=== PATIENT | male | born 1950 | race African-American/Black ===

== ENCOUNTER 2022-08-12 10:57 | Inpatient (IN) | payer MEDICAID, MEDICARE ==
[~2022-08-12] VITALS: Ht 188 cm; Wt 71.2 kg
[2022-08-12 11:01] VITALS: O2SAT 96
[2022-08-12 11:38] LABS: HEMATOCRIT. 35.2 % (42.0-52.0); HEMOGLOBIN. 12.3 g/dL (14.0-18.0); MEAN CORPUSCULAR HEMOGLOBIN 34.7 pg (28.0-32.0); MEAN CORPUSCULAR VOLUME 99.1 fL (80.0-94.0); MEAN PLATELET VOLUME 7.4 fl (7.4-10.4); PLATELET 250 x1000/uL (130-400); RED BLOOD CELL COUNT 3.55 mill/uL (4.7-6.1); RED CELL DISTRIBUTION WIDTH 15.7 % (11.6-14.6)
[2022-08-12 11:46] LABS: CHLORIDE 103 mEq/L (98-107)
[2022-08-12 11:55] LABS: ETHANOL BLOOD < 10 mg/dL (-10)
[2022-08-12 12:13] LABS: PLATELET ESTIMATE NORMAL
[2022-08-12 12:40] LABS: CLARITY URINE TURBID (CLEAR); COLOR URINE DARK YELLOW (YELLOW); KETONES URINE NEGATIVE (NEGATIVE); LEUKOCYTE ESTERASE URINE 3+ (NEGATIVE); NITRITE URINE NEGATIVE (NEGATIVE); OCCULT BLOOD URINE 2+ (NEGATIVE); PROTEIN URINE 2+ (NEGATIVE); SPECIFIC GRAVITY URINE 1.015 (1.005-1.030)
[2022-08-12 13:03] LABS: *AMPHETAMINES SCREEN URINE NEGATIVE (NEGATIVE); *BARBITURATES SCREEN URINE NEGATIVE (NEGATIVE); *BENZODIAZEPINES SCREEN URINE NEGATIVE (NEGATIVE); *COCAINE SCREEN URINE NEGATIVE (NEGATIVE); CANNABINOID URINE SCREEN PRESUMTIVE POSITIVE (NEGATIVE); METHADONE URINE SCREEN NEGATIVE (NEGATIVE); OPIATES URINE SCREEN NEGATIVE (NEGATIVE); PHENCYCLIDINE URINE SCREEN NEGATIVE (NEGATIVE)
[2022-08-12] MEDS ORDERED: CEFTRIAXONE 1GM PREMIX 50 ML IV ONE (13:30)
[2022-08-12] MEDS ORDERED: METRONIDAZOLE 500 MG PREMIX 100 ML IV ONE (15:00)
[2022-08-12] MEDS ORDERED: ACETAMINOPHEN 325MG TABLET PO PRN ×2 (17:15)
[2022-08-12] MEDS ORDERED: HALOPERIDOL 5MG TABLET PO PRN (17:15)
[2022-08-12] MEDS ORDERED: GUAIFENESIN 200MG/10ML SUGAR FREE UDC PO PRN (17:15)
[2022-08-12] MEDS ORDERED: ONDANSETRON HCL 4MG/2ML INJ IV PRN (17:15)
[2022-08-12] MEDS ORDERED: IPRATROPIUM/ALBUTEROL 0.5-3(2.5)MG/3ML NEB HHN PRN (17:15)
[2022-08-12] MEDS ORDERED: DEXTROSE 50% WATER 50ML SYRINGE IV PRN (17:30)
[2022-08-12] MEDS: DEXT 5%/0.9% NACL 1,000 ML IV SCH ×2 (18:00→21:23)
[2022-08-12] MEDS ORDERED: INSULIN LISPRO 100 UNITS/ML SUBCUT SCH (18:00)
[2022-08-12] MEDS: ENOXAPARIN 30MG/0.3ML SYR SUBCUT SCH (18:00)
[2022-08-12] MEDS ORDERED: BLOOD SUGAR DIAGNOSTIC STRIP TEST SCH (18:00)
[2022-08-12 20:51] VITALS: BP 131/86; PULSE 72; RESP 18; TEMP 97.2
[2022-08-12] MEDS ORDERED: ZOLPIDEM TARTRATE 5MG TABLET PO PRN (21:00)
[2022-08-12 21:13] VITALS: BP 131/86; PULSE 72; RESP 18; TEMP 97.2
[2022-08-12] MEDS ORDERED: HYDROCODONE/ACETAMINOPHEN 5/325MG TABLET PO PRN (21:45)
[2022-08-12] MEDS ORDERED: NALOXONE HCL 0.4MG/ML VIAL IV PRN (22:00)
[2022-08-13 04:00] VITALS: BP 129/78; PULSE 64; RESP 16; TEMP 97.4
[2022-08-13 08:07] VITALS: BP 144/79; PULSE 69; RESP 20; TEMP 97.6
[2022-08-13 12:03] LABS: HEMATOCRIT. 38.4 % (42.0-52.0); MEAN CORPUSCULAR HEMOGLOBIN 33.9 pg (28.0-32.0); MEAN CORPUSCULAR VOLUME 100.6 fL (80.0-94.0); MEAN PLATELET VOLUME 7.8 fl (7.4-10.4); PLATELET 218 x1000/uL (130-400); RED BLOOD CELL COUNT 3.82 mill/uL (4.7-6.1)
[2022-08-13 12:14] LABS: CHLORIDE 110 mEq/L (98-107)
[2022-08-13] MEDS ORDERED: KCL 20MEQ/100ML PREMIX 100 ML IV NR (14:00)
[2022-08-13] MEDS ORDERED: CEFTRIAXONE 1,000 MG in DEXTROSE 5% WATER 50 ML IV SCH (14:00)
[2022-08-13 14:26] LABS: PLATELET ESTIMATE NORMAL
[2022-08-13 15:37] VITALS: BP 106/70; PULSE 96; RESP 18; TEMP 97.5
[2022-08-13] MEDS: CEFTRIAXONE 1,000 MG in DEXTROSE 5% WATER 50 ML IV SCH (16:37)
[2022-08-13] MEDS: ENOXAPARIN 30MG/0.3ML SYR SUBCUT SCH (17:15)
[2022-08-13 20:26] VITALS: BP 117/82; PULSE 99; RESP 20; TEMP 97.6
[2022-08-13] MEDS: DEXT 5%/0.9% NACL 1,000 ML IV SCH (23:54)
[2022-08-14 00:12] VITALS: BP 145/85; PULSE 72; RESP 19; TEMP 97.6
[2022-08-14 04:00] VITALS: BP 131/85; PULSE 89; RESP 20; TEMP 97.6
[2022-08-14 06:28] LABS: HEMATOCRIT. 37.1 % (42.0-52.0); HEMOGLOBIN. 12.3 g/dL (14.0-18.0); MEAN CORPUSCULAR HEMOGLOBIN 33.8 pg (28.0-32.0); MEAN CORPUSCULAR VOLUME 102.2 fL (80.0-94.0); PLATELET 203 x1000/uL (130-400); RED BLOOD CELL COUNT 3.63 mill/uL (4.7-6.1)
[2022-08-14 06:36] LABS: CHLORIDE 115 mEq/L (98-107)
[2022-08-14 08:00] VITALS: BP 129/83; PULSE 75; RESP 20; TEMP 97.8
[2022-08-14] MEDS: TAMSULOSIN HCL 0.4MG SR CAPSULE PO SCH (10:30)
[2022-08-14] MEDS: FINASTERIDE 5MG TABLET PO SCH (10:30)
[2022-08-14 12:00] VITALS: BP 132/78; PULSE 73; RESP 20; TEMP 97
[2022-08-14 13:27] LABS: PLATELET ESTIMATE NORMAL
[2022-08-14 16:00] VITALS: BP 122/69; PULSE 75; RESP 18; TEMP 97.1
[2022-08-14] MEDS: CEFTRIAXONE 1,000 MG in DEXTROSE 5% WATER 50 ML IV SCH (19:43)
[2022-08-14 20:00] VITALS: BP 134/88; PULSE 79; RESP 20; TEMP 98.1
[2022-08-14] MEDS: DEXT 5%/0.9% NACL 1,000 ML IV SCH ×2 (21:32→21:34)
[2022-08-15 00:09] VITALS: BP 135/80; PULSE 75; RESP 18; TEMP 97.7
[2022-08-15 04:00] VITALS: BP 135/93; PULSE 91; RESP 20; TEMP 98.1
[2022-08-15 06:29] LABS: HEMATOCRIT. 37.3 % (42.0-52.0); HEMOGLOBIN. 12.4 g/dL (14.0-18.0); MEAN CORPUSCULAR HEMOGLOBIN 33.5 pg (28.0-32.0); MEAN CORPUSCULAR VOLUME 100.7 fL (80.0-94.0); MEAN PLATELET VOLUME 8.2 fl (7.4-10.4); PLATELET 207 x1000/uL (130-400); RED CELL DISTRIBUTION WIDTH 16.5 % (11.6-14.6)
[2022-08-15 07:04] LABS: CHLORIDE 118 mEq/L (98-107)
[2022-08-15 08:00] VITALS: BP 142/92; PULSE 91; RESP 18; TEMP 97.8
[2022-08-15] MEDS: FINASTERIDE 5MG TABLET PO SCH (09:00)
[2022-08-15] MEDS: TAMSULOSIN HCL 0.4MG SR CAPSULE PO SCH (09:00)
[2022-08-15 09:04] LABS: PROSTRATE SPECIFIC AG TOTAL 0.95 ng/mL (0.0-4.0)
[2022-08-15 09:31] LABS: BG BASE EXCESS -3.1 mmol/L (-2.0-2.0); BG CARBOXYHEMOGLOBIN 0.1 % (0.5-1.5); BG DEOXYHEMOGLOBIN 2.5 % (0.0-5.0); BG FRACTION INSPIRED OXYGEN 21; BG HCO3 ACT 19.2 mmol/L (22.0-26.0); BG METHEMOGLOBIN 0.4 % (0.0-1.5); BG OXYGEN SATURATION 97.5 % (92.0-98.5); BG PCO2 27.3 mmHg (35.0-45.0); BG PH 7.466 (7.350-7.450); BG PO2 98.9 mmHg (75.0-100.0); BG SAMPLE SITE RIGHT RADIAL; BG TOTAL HEMOGLOBIN 12.9 g/dL (12.0-18.0); BG VENT MODE ROOM AIR
[2022-08-15 11:10] LABS: PHOSPHORUS 2.4 mg/dL (2.5-4.9)
[2022-08-15 12:00] VITALS: BP 137/89; PULSE 89; RESP 18; TEMP 97.2
[2022-08-15] MEDS ORDERED: LEVOFLOXACIN 750MG PREMIX 150 ML IV SCH (12:30)
[2022-08-15] MEDS: DEXTROSE 5% WATER 1,000 ML IV SCH (13:00)
[2022-08-15] MEDS ORDERED: MINERAL OIL ENEMA 133ML PR NR (13:15)
[2022-08-15 13:22] LABS: T4 FREE 0.94 ng/dL (0.76-1.46)
[2022-08-15] MEDS: KCL 20MEQ/100ML PREMIX 100 ML IV SCH ×2 (13:50→14:10)
[2022-08-15] MEDS: SODIUM CHLORIDE 0.45% 1,000 ML IV SCH ×2 (13:54→21:56)
[2022-08-15] MEDS ORDERED: FOLIC ACID 1 MG in SODIUM CHLORIDE 0.9% 500 ML IV SCH (14:00)
[2022-08-15 16:00] VITALS: BP 136/95; PULSE 107; RESP 18; TEMP 98.2
[2022-08-15] MEDS: CEFTRIAXONE 1,000 MG in DEXTROSE 5% WATER 50 ML IV SCH ×2 (17:36→17:38)
[2022-08-15] MEDS: PANTOPRAZOLE SODIUM 40 MG/VIAL IV SCH (17:56)
[2022-08-15 20:00] VITALS: BP 133/92; PULSE 102; RESP 20; TEMP 97.5
[2022-08-16] VITALS: BP 135/96; PULSE 104; RESP 20; TEMP 98
[2022-08-16 01:48] LABS: PLATELET ESTIMATE NORMAL
[2022-08-16 04:00] VITALS: BP 142/95; PULSE 107; RESP 20; TEMP 97.9
[2022-08-16] MEDS: DEXTROSE 5% WATER 1,000 ML IV SCH (04:24)
[2022-08-16 07:24] LABS: BASOPHILS % 0.4 % (0.0-2.0); EOSINOPHILS % 1.4 % (0.0-5.0); MEAN CORPUSCULAR HEMOGLOBIN 33.9 pg (28.0-32.0); MEAN CORPUSCULAR VOLUME 98.6 fL (80.0-94.0); MEAN PLATELET VOLUME 8.5 fl (7.4-10.4); MONOCYTES % 7.9 % (2.0-8.0); NEUTROPHILS % 82.3 % (40.0-76.0); PLATELET 164 x1000/uL (130-400); RED BLOOD CELL COUNT 3.55 mill/uL (4.7-6.1); RED CELL DISTRIBUTION WIDTH 15.8 % (11.6-14.6)
[2022-08-16 07:30] LABS: CHLORIDE 120 mEq/L (98-107)
[2022-08-16 07:39] LABS: HDL CHOLESTEROL 62 mg/dL (40-59); LDL CHOLESTEROL 82 mg/dL (5-100); PHOSPHORUS 2.9 mg/dL (2.5-4.9)
[2022-08-16 08:00] VITALS: BP 142/79; PULSE 100; RESP 18; TEMP 97.3
[2022-08-16] MEDS: TAMSULOSIN HCL 0.4MG SR CAPSULE PO SCH (09:00)
[2022-08-16] MEDS: FINASTERIDE 5MG TABLET PO SCH (09:00)
[2022-08-16] MEDS: SODIUM CHLORIDE 0.45% 1,000 ML IV SCH ×2 (10:54→18:23)
[2022-08-16] MEDS: PANTOPRAZOLE SODIUM 40 MG/VIAL IV SCH (10:54)
[2022-08-16 12:00] VITALS: BP 132/69; PULSE 116; RESP 18; TEMP 97.3
[2022-08-16] MEDS ORDERED: METOCLOPRAMIDE HCL 10MG/2ML VIAL IV SCH (12:00)
[2022-08-16 16:00] VITALS: BP 123/87; PULSE 63; RESP 23; TEMP 97.2
[2022-08-16] MEDS ORDERED: POTASSIUM CHLORIDE 20MEQ/PACKET PO NR (17:15)
[2022-08-16] MEDS: METOCLOPRAMIDE HCL 10MG/2ML VIAL IV SCH (18:22)
[2022-08-16] MEDS: CEFTRIAXONE 1,000 MG in DEXTROSE 5% WATER 50 ML IV SCH (18:22)
[2022-08-16] MEDS ORDERED: SORBITOL 70% SOLN 30ML PO NR (18:30)
[2022-08-16 20:00] VITALS: BP 105/77; PULSE 113; RESP 18; TEMP 97.7
[2022-08-17] VITALS (86 sets, daily range): BP systolic 71–230; BP diastolic 33–97; PULSE 61–117; RESP 14–28; TEMP 95–98.2
[2022-08-17] MEDS: METOCLOPRAMIDE HCL 10MG/2ML VIAL IV SCH (00:42)
[2022-08-17] MEDS: SODIUM CHLORIDE 0.45% 1,000 ML IV SCH (05:33)
[2022-08-17 06:44] LABS: HEMATOCRIT. 41.2 % (42.0-52.0); HEMOGLOBIN. 12.7 g/dL (14.0-18.0); MEAN CORPUSCULAR HEMOGLOBIN 33.1 pg (28.0-32.0); MEAN CORPUSCULAR VOLUME 107.4 fL (80.0-94.0); MEAN PLATELET VOLUME 8.4 fl (7.4-10.4); PLATELET 110 x1000/uL (130-400); RED BLOOD CELL COUNT 3.84 mill/uL (4.7-6.1); RED CELL DISTRIBUTION WIDTH 17.8 % (11.6-14.6)
[2022-08-17] MEDS ORDERED: PROPOFOL 10MG/ML 100ML 100 ML IV PRN (07:45)
[2022-08-17 08:17] LABS: CHLORIDE 120 mEq/L (98-107)
[2022-08-17] MEDS: FINASTERIDE 5MG TABLET PO SCH ×2 (09:00→11:02)
[2022-08-17] MEDS ORDERED: FOLIC ACID 1 MG in SODIUM CHLORIDE 0.9% 500 ML IV SCH ×2 (09:00→14:00)
[2022-08-17 09:17] LABS: BG BASE EXCESS -9.7 mmol/L (-2.0-2.0); BG CARBOXYHEMOGLOBIN 0.3 % (0.5-1.5); BG DEOXYHEMOGLOBIN 0.4 % (0.0-5.0); BG FRACTION INSPIRED OXYGEN 100; BG METHEMOGLOBIN 0.5 % (0.0-1.5); BG OXYGEN SATURATION 99.6 % (92.0-98.5); BG OXYHEMOGLOBIN 98.8 % (94.0-97.0); BG PCO2 46.1 mmHg (35.0-45.0); BG PH 7.209 (7.350-7.450); BG PO2 450.8 mmHg (75.0-100.0); BG SAMPLE SITE LEFT BRACHIAL; BG TOTAL HEMOGLOBIN 13.1 g/dL (12.0-18.0); BG VENT MODE VENT - AC
[2022-08-17] MEDS ORDERED: SODIUM BICARBONATE 8.4% 1 MEQ/ML 50ML SYR IV NR ×2 (09:30→16:45)
[2022-08-17] MEDS ORDERED: SODIUM POLYSTYRENE SULFONATE 15 G/60 ML BOT PO NR (09:30)
[2022-08-17] MEDS ORDERED: FUROSEMIDE 20MG/2ML VIAL IVP NR (09:30)
[2022-08-17] MEDS ORDERED: DEXT 5%/0.45% NACL 1000ML 1,000 ML IV SCH (09:30)
[2022-08-17] MEDS: SODIUM BICARBONATE 100 MEQ in DEXTROSE 5% WATER 1,000 ML IV SCH (10:29)
[2022-08-17 11:13] LABS: CREATINE KINASE 79 IU/L (39-308)
[2022-08-17] MEDS: NOREPINEPHRINE 32 MG in DEXT 5% WATER 218 ML IV PRN (11:22)
[2022-08-17] MEDS ORDERED: LIDOCAINE HCL 1% 10 MG/ML 10ML VIAL ONE (12:04)
[2022-08-17] MEDS ORDERED: ENOXAPARIN 30MG/0.3ML SYR SUBCUT SCH (14:00)
[2022-08-17] MEDS ORDERED: ENOXAPARIN 60MG/0.6ML SYR SUBCUT NR (14:15)
[2022-08-17 14:18] LABS: PLATELET ESTIMATE DECREASED
[2022-08-17] MEDS: FAMOTIDINE 20MG/2ML VIAL IV SCH (14:55)
[2022-08-17] MEDS: TAMSULOSIN HCL 0.4MG SR CAPSULE PO SCH (14:56)
[2022-08-17 16:24] LABS: BG BASE EXCESS -8.1 mmol/L (-2.0-2.0); BG CARBOXYHEMOGLOBIN 0.1 % (0.5-1.5); BG DEOXYHEMOGLOBIN 12.3 % (0.0-5.0); BG FRACTION INSPIRED OXYGEN 60; BG HCO3 ACT 19.9 mmol/L (22.0-26.0); BG METHEMOGLOBIN 0.4 % (0.0-1.5); BG OXYGEN SATURATION 87.6 % (92.0-98.5); BG OXYHEMOGLOBIN 87.2 % (94.0-97.0); BG PCO2 51.2 mmHg (35.0-45.0); BG PH 7.208 (7.350-7.450); BG PO2 60.5 mmHg (75.0-100.0); BG SAMPLE SITE RIGHT RADIAL; BG TOTAL HEMOGLOBIN 12.8 g/dL (12.0-18.0); BG VENT MODE VENT - AC
[2022-08-17] MEDS ORDERED: METOCLOPRAMIDE HCL 10MG/2ML VIAL IV SCH (18:00)
[2022-08-17] MEDS: CEFTRIAXONE 1,000 MG in DEXTROSE 5% WATER 50 ML IV SCH (19:49)
[2022-08-17] MEDS ORDERED: SORBITOL 70% SOLN 30ML PO NR (20:00)
[2022-08-17 20:38] LABS: BG BASE EXCESS -2.1 mmol/L (-2.0-2.0); BG CARBOXYHEMOGLOBIN 0.3 % (0.5-1.5); BG DEOXYHEMOGLOBIN 9.8 % (0.0-5.0); BG FRACTION INSPIRED OXYGEN 100; BG HCO3 ACT 25.7 mmol/L (22.0-26.0); BG METHEMOGLOBIN 0.4 % (0.0-1.5); BG OXYGEN SATURATION 90.1 % (92.0-98.5); BG OXYHEMOGLOBIN 89.5 % (94.0-97.0); BG PCO2 56.6 mmHg (35.0-45.0); BG PH 7.275 (7.350-7.450); BG PO2 60.4 mmHg (75.0-100.0); BG SAMPLE SITE LEFT RADIAL; BG TOTAL HEMOGLOBIN 13.9 g/dL (12.0-18.0); BG VENT MODE VENT - AC
[2022-08-18] VITALS (104 sets, daily range): BP systolic 82–129; BP diastolic 37–78; PULSE 87–116; RESP 24–28; TEMP 97.4–99.3
[2022-08-18] MEDS: SODIUM BICARBONATE 100 MEQ in DEXTROSE 5% WATER 1,000 ML IV SCH (00:07)
[2022-08-18] MEDS: NOREPINEPHRINE 32 MG in DEXT 5% WATER 218 ML IV PRN (05:38)
[2022-08-18 05:50] LABS: INR 1.1; PROTHROMBIN TIME 12.2 sec (9.6-11.0)
[2022-08-18] MEDS: DEXTROSE 5% WATER 1,000 ML IV SCH ×3 (06:35→20:47)
[2022-08-18] MEDS ORDERED: IPRATROPIUM/ALBUTEROL 0.5-3(2.5)MG/3ML NEB HHN PRN (08:00)
[2022-08-18] MEDS: TAMSULOSIN HCL 0.4MG SR CAPSULE PO SCH (08:27)
[2022-08-18] MEDS: FAMOTIDINE 20MG/2ML VIAL IV SCH (08:27)
[2022-08-18] MEDS: FINASTERIDE 5MG TABLET PO SCH (08:30)
[2022-08-18] MEDS: DEXT 5% IV SCH (08:39)
[2022-08-18] MEDS: WATER IV SCH (08:39)
[2022-08-18] MEDS: FOLIC ACID IV SCH (08:39)
[2022-08-18] MEDS: IPRATROPIUM/ALBUTEROL 0.5-3(2.5)MG/3ML NEB HHN SCH ×2 (08:48→19:56)
[2022-08-18 08:52] LABS: BG BASE EXCESS -6.7 mmol/L (-2.0-2.0); BG CARBOXYHEMOGLOBIN 0.3 % (0.5-1.5); BG DEOXYHEMOGLOBIN 5.4 % (0.0-5.0); BG FRACTION INSPIRED OXYGEN 60; BG HCO3 ACT 19.4 mmol/L (22.0-26.0); BG METHEMOGLOBIN 0.5 % (0.0-1.5); BG OXYGEN SATURATION 94.6 % (92.0-98.5); BG OXYHEMOGLOBIN 93.8 % (94.0-97.0); BG PH 7.293 (7.350-7.450); BG SAMPLE SITE RIGHT RADIAL; BG TOTAL HEMOGLOBIN 11.1 g/dL (12.0-18.0); BG VENT MODE VENT - AC
[2022-08-18 08:54] LABS: HEMATOCRIT. 33.3 % (42.0-52.0); HEMOGLOBIN. 10.6 g/dL (14.0-18.0); MEAN CORPUSCULAR HEMOGLOBIN 32.8 pg (28.0-32.0); MEAN CORPUSCULAR VOLUME 102.8 fL (80.0-94.0); MEAN PLATELET VOLUME 8.3 fl (7.4-10.4); RED BLOOD CELL COUNT 3.24 mill/uL (4.7-6.1); RED CELL DISTRIBUTION WIDTH 16.8 % (11.6-14.6)
[2022-08-18 09:15] LABS: PLATELET 40 x1000/uL (130-400)
[2022-08-18 13:03] LABS: HEMATOCRIT. 31.6 % (42.0-52.0); HEMOGLOBIN. 10.3 g/dL (14.0-18.0); MEAN CORPUSCULAR HEMOGLOBIN 33.4 pg (28.0-32.0); MEAN CORPUSCULAR VOLUME 102.7 fL (80.0-94.0); MEAN PLATELET VOLUME 8.7 fl (7.4-10.4); RED BLOOD CELL COUNT 3.08 mill/uL (4.7-6.1); RED CELL DISTRIBUTION WIDTH 17.3 % (11.6-14.6)
[2022-08-18 13:09] LABS: PLATELET 34 x1000/uL (130-400)
[2022-08-18] MEDS ORDERED: SODIUM BICARBONATE 8.4% 1 MEQ/ML 50ML SYR IV NR (14:00)
[2022-08-18] MEDS ORDERED: ENOXAPARIN 60MG/0.6ML SYR SUBCUT SCH (15:00)
[2022-08-19] VITALS (109 sets, daily range): BP systolic 79–159; BP diastolic 38–120; PULSE 86–104; RESP 6–104; TEMP 97.5–98.6
[2022-08-19] MEDS: NOREPINEPHRINE 32 MG in DEXT 5% WATER 218 ML IV PRN (00:33)
[2022-08-19] MEDS: DEXTROSE 5% WATER 1,000 ML IV SCH (04:32)
[2022-08-19 05:48] LABS: HEMATOCRIT. 26.2 % (42.0-52.0); HEMOGLOBIN. 8.8 g/dL (14.0-18.0); MEAN CORPUSCULAR HEMOGLOBIN 33.9 pg (28.0-32.0); MEAN CORPUSCULAR VOLUME 101.4 fL (80.0-94.0); RED BLOOD CELL COUNT 2.59 mill/uL (4.7-6.1); RED CELL DISTRIBUTION WIDTH 16.8 % (11.6-14.6)
[2022-08-19 06:10] LABS: INR 1.1; PROTHROMBIN TIME 11.9 sec (9.6-11.0)
[2022-08-19 06:42] LABS: PLATELET 25 x1000/uL (130-400)
[2022-08-19 07:29] LABS: PLATELET ESTIMATE DECREASED
[2022-08-19 07:46] LABS: NUCLEATED RED BLOOD CELLS 1 /100 WBC; PLATELET ESTIMATE DECREASED
[2022-08-19 08:07] LABS: PLATELET ESTIMATE MARKEDLY DECREASED
[2022-08-19 09:06] LABS: BG CARBOXYHEMOGLOBIN 0.2 % (0.5-1.5); BG DEOXYHEMOGLOBIN 0.8 % (0.0-5.0); BG FRACTION INSPIRED OXYGEN 70; BG HCO3 ACT 21.5 mmol/L (22.0-26.0); BG OXYGEN SATURATION 99.2 % (92.0-98.5); BG PCO2 51.3 mmHg (35.0-45.0); BG PO2 223.2 mmHg (75.0-100.0); BG SAMPLE SITE LEFT RADIAL; BG TOTAL HEMOGLOBIN 11.3 g/dL (12.0-18.0); BG TOTAL RESPIRATORY RATE 26 b/min; BG VENT MODE VENT - AC
[2022-08-19] MEDS ORDERED: DEXTROSE 50% WATER 50ML SYRINGE IV PRN (10:45)
[2022-08-19] MEDS: DEXT 5% IV SCH (11:12)
[2022-08-19] MEDS: PANTOPRAZOLE SODIUM 40 MG/VIAL IV SCH (11:12)
[2022-08-19] MEDS: TAMSULOSIN HCL 0.4MG SR CAPSULE PO SCH (11:12)
[2022-08-19] MEDS: WATER IV SCH (11:12)
[2022-08-19] MEDS: FOLIC ACID IV SCH (11:12)
[2022-08-19] MEDS: FINASTERIDE 5MG TABLET PO SCH (11:12)
[2022-08-19] MEDS: BLOOD SUGAR DIAGNOSTIC STRIP TEST SCH ×3 (11:12→21:45)
[2022-08-19] MEDS: INSULIN LISPRO 100 UNITS/ML SUBCUT SCH ×6 (11:30→21:00)
[2022-08-19] MEDS: IPRATROPIUM/ALBUTEROL 0.5-3(2.5)MG/3ML NEB HHN SCH ×2 (14:16→20:05)
[2022-08-19] MEDS ORDERED: CEFEPIME 1,000 MG in DEXTROSE 5% WATER 50 ML IV SCH (16:00)
[2022-08-19] MEDS ORDERED: VANCOMYCIN 1500MG in DEXTROSE 5% WATER 250ML IV NR (17:00)
[2022-08-19] MEDS: DOXYCYCLINE 100 MG in DEXT 5% WATER 100 ML IV SCH (19:09)
[2022-08-19] MEDS: MEROPENEM 1,000 MG in SODIUM CHLORIDE 0.9% 100 ML IV SCH (19:09)
[2022-08-20] VITALS (110 sets, daily range): BP systolic 75–201; BP diastolic 29–114; PULSE 87–121; RESP 26–31; TEMP 97.1–98.9
[2022-08-20] MEDS: DEXTROSE 5% WATER 1,000 ML IV SCH (01:15)
[2022-08-20] MEDS: IPRATROPIUM/ALBUTEROL 0.5-3(2.5)MG/3ML NEB HHN SCH ×4 (02:05→20:03)
[2022-08-20] MEDS: NOREPINEPHRINE 32 MG in DEXT 5% WATER 218 ML IV PRN (05:54)
[2022-08-20 06:00] LABS: BASOPHILS % 0.1 % (0.0-2.0); EOSINOPHILS % 0.1 % (0.0-5.0); HEMOGLOBIN. 8.1 g/dL (14.0-18.0); LYMPHOCYTES % 10.5 % (20.0-50.0); MEAN CORPUSCULAR HEMOGLOBIN 33.6 pg (28.0-32.0); MEAN PLATELET VOLUME 8.8 fl (7.4-10.4); MONOCYTES % 3.4 % (2.0-8.0); NEUTROPHILS % 85.9 % (40.0-76.0); RED CELL DISTRIBUTION WIDTH 16.9 % (11.6-14.6)
[2022-08-20] MEDS: DOXYCYCLINE 100 MG in DEXT 5% WATER 100 ML IV SCH ×2 (06:09→18:20)
[2022-08-20 06:30] LABS: PLATELET 14 x1000/uL (130-400)
[2022-08-20] MEDS: INSULIN LISPRO 100 UNITS/ML SUBCUT SCH ×7 (06:30→21:30)
[2022-08-20] MEDS: BLOOD SUGAR DIAGNOSTIC STRIP TEST SCH ×4 (06:34→20:57)
[2022-08-20] MEDS ORDERED: LIDOCAINE HCL 1% 10 MG/ML 10ML VIAL ONE (07:19)
[2022-08-20 09:10] LABS: BG BASE EXCESS -4.4 mmol/L (-2.0-2.0); BG CARBOXYHEMOGLOBIN 0.3 % (0.5-1.5); BG DEOXYHEMOGLOBIN 1.3 % (0.0-5.0); BG FRACTION INSPIRED OXYGEN 40; BG HCO3 ACT 21.9 mmol/L (22.0-26.0); BG METHEMOGLOBIN 0.3 % (0.0-1.5); BG OXYGEN SATURATION 98.7 % (92.0-98.5); BG OXYHEMOGLOBIN 98.1 % (94.0-97.0); BG PH 7.296 (7.350-7.450); BG PO2 149.6 mmHg (75.0-100.0); BG SAMPLE SITE RIGHT RADIAL; BG TOTAL HEMOGLOBIN 9.6 g/dL (12.0-18.0); BG VENT MODE VENT - AC
[2022-08-20] MEDS: CITRIC ACID/SODIUM CITRATE SOLN 30ML UDC PO SCH ×3 (10:15→18:19)
[2022-08-20] MEDS: PANTOPRAZOLE SODIUM 40 MG/VIAL IV SCH (10:15)
[2022-08-20] MEDS: TAMSULOSIN HCL 0.4MG SR CAPSULE PO SCH (10:16)
[2022-08-20] MEDS: WATER IV SCH (10:16)
[2022-08-20] MEDS: FINASTERIDE 5MG TABLET PO SCH (10:16)
[2022-08-20] MEDS: FOLIC ACID IV SCH (10:16)
[2022-08-20] MEDS: DEXT 5% IV SCH (10:16)
[2022-08-20] MEDS ORDERED: VASOPRESSIN 20 UNIT in SODIUM CHLORIDE 0.9% 99 ML IV PRN (12:00)
[2022-08-20] MEDS: SODIUM CHLORIDE 0.45% 1,000 ML IV SCH (18:19)
[2022-08-20 20:57] LABS: BASOPHILS % 0.2 % (0.0-2.0); EOSINOPHILS % 0.2 % (0.0-5.0); HEMATOCRIT. 26.3 % (42.0-52.0); HEMOGLOBIN. 8.9 g/dL (14.0-18.0); LYMPHOCYTES % 11.3 % (20.0-50.0); MEAN CORPUSCULAR HEMOGLOBIN 33.5 pg (28.0-32.0); MEAN PLATELET VOLUME 9.1 fl (7.4-10.4); MONOCYTES % 3.9 % (2.0-8.0); NEUTROPHILS % 84.4 % (40.0-76.0); RED BLOOD CELL COUNT 2.65 mill/uL (4.7-6.1); RED CELL DISTRIBUTION WIDTH 16.7 % (11.6-14.6)
[2022-08-20 21:09] LABS: PLATELET 25 x1000/uL (130-400)
[2022-08-20] MEDS: MEROPENEM 1,000 MG in SODIUM CHLORIDE 0.9% 100 ML IV SCH (21:30)
[2022-08-21] VITALS (104 sets, daily range): BP systolic 89–130; BP diastolic 58–81; PULSE 79–105; RESP 20–69; TEMP 96–98.2
[2022-08-21 00:34] LABS: HEMATOCRIT. 25.1 % (42.0-52.0); HEMOGLOBIN. 8.5 g/dL (14.0-18.0); MEAN CORPUSCULAR HEMOGLOBIN 33.6 pg (28.0-32.0); MEAN CORPUSCULAR VOLUME 99.4 fL (80.0-94.0); MEAN PLATELET VOLUME 10.8 fl (7.4-10.4); RED BLOOD CELL COUNT 2.53 mill/uL (4.7-6.1); RED CELL DISTRIBUTION WIDTH 16.6 % (11.6-14.6)
[2022-08-21 00:50] LABS: PLATELET 41 x1000/uL (130-400)
[2022-08-21] MEDS: IPRATROPIUM/ALBUTEROL 0.5-3(2.5)MG/3ML NEB HHN SCH ×4 (02:03→20:37)
[2022-08-21 03:24] LABS: PLATELET ESTIMATE MARKEDLY DECREASED
[2022-08-21 05:23] LABS: BASOPHILS % 0.1 % (0.0-2.0); EOSINOPHILS % 0.7 % (0.0-5.0); HEMATOCRIT. 24.4 % (42.0-52.0); HEMOGLOBIN. 8.3 g/dL (14.0-18.0); LYMPHOCYTES % 14.4 % (20.0-50.0); MEAN CORPUSCULAR HEMOGLOBIN 33.5 pg (28.0-32.0); MEAN CORPUSCULAR VOLUME 98.5 fL (80.0-94.0); MEAN PLATELET VOLUME 9.1 fl (7.4-10.4); MONOCYTES % 3.9 % (2.0-8.0); NEUTROPHILS % 80.9 % (40.0-76.0); RED BLOOD CELL COUNT 2.48 mill/uL (4.7-6.1); RED CELL DISTRIBUTION WIDTH 17.2 % (11.6-14.6)
[2022-08-21 05:44] LABS: PHOSPHORUS 4.1 mg/dL (2.5-4.9)
[2022-08-21] MEDS: DOXYCYCLINE 100 MG in DEXT 5% WATER 100 ML IV SCH ×2 (05:57→19:12)
[2022-08-21] MEDS: SODIUM CHLORIDE 0.45% 1,000 ML IV SCH (05:57)
[2022-08-21 06:03] LABS: PLATELET 18 x1000/uL (130-400)
[2022-08-21] MEDS: BLOOD SUGAR DIAGNOSTIC STRIP TEST SCH ×4 (06:12→21:00)
[2022-08-21] MEDS: INSULIN LISPRO 100 UNITS/ML SUBCUT SCH ×7 (06:13→22:38)
[2022-08-21] MEDS: FOLIC ACID IV SCH (08:55)
[2022-08-21] MEDS: PANTOPRAZOLE SODIUM 40 MG/VIAL IV SCH (08:55)
[2022-08-21] MEDS: DEXT 5% IV SCH (08:55)
[2022-08-21] MEDS: FINASTERIDE 5MG TABLET PO SCH (08:55)
[2022-08-21] MEDS: TAMSULOSIN HCL 0.4MG SR CAPSULE PO SCH (08:55)
[2022-08-21] MEDS: WATER IV SCH (08:55)
[2022-08-21] MEDS: CITRIC ACID/SODIUM CITRATE SOLN 30ML UDC PO SCH ×3 (08:55→18:19)
[2022-08-21 08:59] LABS: BG BASE EXCESS -5.4 mmol/L (-2.0-2.0); BG CARBOXYHEMOGLOBIN 0.3 % (0.5-1.5); BG DEOXYHEMOGLOBIN 0.9 % (0.0-5.0); BG FRACTION INSPIRED OXYGEN 40; BG HCO3 ACT 20.5 mmol/L (22.0-26.0); BG METHEMOGLOBIN 0.3 % (0.0-1.5); BG OXYGEN SATURATION 99.1 % (92.0-98.5); BG OXYHEMOGLOBIN 98.5 % (94.0-97.0); BG PCO2 41.4 mmHg (35.0-45.0); BG PH 7.312 (7.350-7.450); BG PO2 178.5 mmHg (75.0-100.0); BG SAMPLE SITE RIGHT RADIAL; BG TOTAL HEMOGLOBIN 9.1 g/dL (12.0-18.0); BG VENT MODE VENT - AC
[2022-08-21] MEDS: DEXT 5%/0.9% NACL 1,000 ML IV SCH ×2 (09:00→22:06)
[2022-08-21 15:57] LABS: BG BASE EXCESS -4.9 mmol/L (-2.0-2.0); BG CARBOXYHEMOGLOBIN 0.3 % (0.5-1.5); BG DEOXYHEMOGLOBIN 0.3 % (0.0-5.0); BG FRACTION INSPIRED OXYGEN 100; BG HCO3 ACT 19.6 mmol/L (22.0-26.0); BG METHEMOGLOBIN 0.3 % (0.0-1.5); BG OXYGEN SATURATION 99.7 % (92.0-98.5); BG OXYHEMOGLOBIN 99.1 % (94.0-97.0); BG PH 7.378 (7.350-7.450); BG PO2 506.6 mmHg (75.0-100.0); BG SAMPLE SITE RIGHT RADIAL; BG VENT MODE VENT - AC
[2022-08-21 18:24] LABS: BG BASE EXCESS -7.2 mmol/L (-2.0-2.0); BG CARBOXYHEMOGLOBIN 0.2 % (0.5-1.5); BG DEOXYHEMOGLOBIN 0.4 % (0.0-5.0); BG FRACTION INSPIRED OXYGEN 44; BG HCO3 ACT 21.8 mmol/L (22.0-26.0); BG METHEMOGLOBIN 0.2 % (0.0-1.5); BG OXYGEN SATURATION 99.6 % (92.0-98.5); BG OXYHEMOGLOBIN 99.2 % (94.0-97.0); BG PCO2 62.6 mmHg (35.0-45.0); BG PH 7.159 (7.350-7.450); BG PO2 516.8 mmHg (75.0-100.0); BG SAMPLE SITE RIGHT RADIAL; BG TOTAL HEMOGLOBIN 10.1 g/dL (12.0-18.0); BG VENT MODE NASAL CANNULA
[2022-08-21] MEDS: MEROPENEM 1,000 MG in SODIUM CHLORIDE 0.9% 100 ML IV SCH (22:06)
[2022-08-22] VITALS (108 sets, daily range): BP systolic 60–121; BP diastolic 38–82; PULSE 80–130; RESP 27–30; TEMP 96.5–97.5
[2022-08-23] VITALS (56 sets, daily range): BP systolic 43–112; BP diastolic 24–61; PULSE 86–114; RESP 29–30; TEMP 97.5–97.6
== END 2022-08-23 13:31 | DRG 720 ==
LOC: ER 11:16 → 7WST 18:03 → MICUSO 08-17 07:54
PROVIDERS: ADMIT Internal Medicine; ATTEND Internal Medicine
PROC: 4A00X4Z Measurement of Central Nervous Electrical Activity, External Approach (ICD-10-PCS; 2022-08-16)
PROC: 5A1955Z Respiratory Ventilation, Greater than 96 Consecutive Hours (ICD-10-PCS; principal; 2022-08-17)
PROC: 0BH17EZ Insertion of Endotracheal Airway into Trachea, Via Natural or Artificial Opening (ICD-10-PCS; 2022-08-17)
PROC: 05H833Z Insertion of Infusion Device into Left Axillary Vein, Percutaneous Approach (ICD-10-PCS; 2022-08-17)
PROC: B54NZZA Ultrasonography of Left Upper Extremity Veins, Guidance (ICD-10-PCS; 2022-08-17)
PROC: 02HV33Z Insertion of Infusion Device into Superior Vena Cava, Percutaneous Approach (ICD-10-PCS; 2022-08-20)
PROC: B548ZZA Ultrasonography of Superior Vena Cava, Guidance (ICD-10-PCS; 2022-08-20)
PROC: 30233R1 Transfusion of Nonautologous Platelets into Peripheral Vein, Percutaneous Approach (ICD-10-PCS; 2022-08-20)
PROC: 5A1D70Z Performance of Urinary Filtration, Intermittent, Less than 6 Hours Per Day (ICD-10-PCS; 2022-08-20)
PROC: 4A00X4Z Measurement of Central Nervous Electrical Activity, External Approach (ICD-10-PCS; 2022-08-21)
DX: A41.51 Sepsis due to Escherichia coli [E. coli] (principal); N17.0 Acute kidney failure with tubular necrosis; J96.01 Acute respiratory failure with hypoxia; R65.21 Severe sepsis with septic shock; E43 Unspecified severe protein-calorie malnutrition; G92.8 Other toxic encephalopathy; D69.6 Thrombocytopenia, unspecified; K56.0 Paralytic ileus; J18.9 Pneumonia, unspecified organism; E11.22 Type 2 diabetes mellitus with diabetic chronic kidney disease; E86.0 Dehydration; Z66 Do not resuscitate; E87.6 Hypokalemia; D53.9 Nutritional anemia, unspecified; I82.412 Acute embolism and thrombosis of left femoral vein; D75.89 Other specified diseases of blood and blood-forming organs; E11.65 Type 2 diabetes mellitus with hyperglycemia; E53.8 Deficiency of other specified B group vitamins; E87.0 Hyperosmolality and hypernatremia; E87.1 Hypo-osmolality and hyponatremia; E87.4 Mixed disorder of acid-base balance; E87.5 Hyperkalemia; D63.1 Anemia in chronic kidney disease; I12.9 Hypertensive chronic kidney disease with stage 1 through stage 4 chronic kidney disease, or unspecified chronic kidney disease; K40.20 Bilateral inguinal hernia, without obstruction or gangrene, not specified as recurrent; N13.6 Pyonephrosis; N18.2 Chronic kidney disease, stage 2 (mild); E88.09 Other disorders of plasma-protein metabolism, not elsewhere classified; F10.10 Alcohol abuse, uncomplicated; Z87.891 Personal history of nicotine dependence; Z68.20 Body mass index [BMI] 20.0-20.9, adult
CPT/HCPCS: 31500; 36415; 36556; 36573; 36600; 70551; 71045; 74018; 74176; 76700; 76770; 76937; 78610; 80048; 80053; 80061; 80076; 80202; 80305; 80320; 81003; 82140; 82375; 82550; 82607; 82746; 82805; 82962; 83010; 83036; 83605; 83615; 83735; 84100; 84145; 84153; 84439; 84443; 84478; 84481; 84484; 85025; 85362; 85379; 85384; 86022; 86850; 86900; 87070; 87077; 87186; 90935; 92610; 93005; 93970; 94002; 94003; 94640; 99291; A6261; A9512; C1725; C1752; C1760; C1893; C9113; J0692; J0696; J1650; J1815; J1940; J2185; J2405; J2765; J3370; J3480; J3490; J7040; J7042; J7050; J7060; J7070; P9034; A4315; G0103; G0480